=== PATIENT | female | born 1975 | race Caucasian/White ===

== ENCOUNTER 2020-11-18 10:38 | Outpatient (CLI) | payer OTHER, SELFPAY ==
--- NOTE | 2020-11-18 10:45 | US_ITS ---
WS: [id number] Complete ABDOMINAL ULTRASOUND HISTORY: ABDOMINAL PAIN COMPARISON: None available. Liver: 14.3 cm in length. Liver is normal size and echogenicity with no mass or intrahepatic dilatati on. Small cyst in the RIGHT lobe adjacent to the gallbladder measures 1.7 x 1.7 x 1.2 cm. Gallbladder: Normally distended with no gallstones, wall thickening or pericholecystic fluid. Gallbladder wall thickness: 0.2 cm. Pancreas: Body is normal. Head and tail are not visualized. CBD: 0.3 cm. Right kidney: 11.0 cm x 5.0 cm x 5.1 cm. No mass, cortical thickening or hydronephrosis. Left kidney: 11.8 cm x 3.8 cm x 4.3 cm. Normal size kidney with cortical thinning. No mass or obstru ction. Spleen: Normal size and echogenicity. Abdominal aorta and IVC are within normal limits. No ascites. US/US abdomen complete* [id number] IMPRESSION: 1. Hepatic cyst measures 1.7 x 1.7 x 1.2 cm. 2. Negative gallbladder. 3. Mild cortical thinning LEFT kidney with no obstruction.
== END 2020-11-18 10:39 | disposition home or self-care (01) ==
LOC: RAD 10:43
PROVIDERS: Visit Provider Family Medicine
DX: R10.9 Unspecified abdominal pain (principal); K76.89 Other specified diseases of liver
CPT/HCPCS: 76700